=== PATIENT | female | born 1945 | race Caucasian/White ===

== ENCOUNTER → 2017-08-02 10:03 | Outpatient (CLI) | payer MEDICARE, SELFPAY ==
[2017-08-02 10:57] LABS: AST(SGOT) 12 U/L (15-37); Alanine Aminotransfer ALT/SGPT 21 U/L (13-56); Albumin, Serum 3.7 g/dL (3.2-5.0); Alkaline Phosphatase 111 U/L (45-117); Bilirubin, Direct 0.06 mg/dL (0.00-0.30); Cholesterol 182 mg/dL (200); Globulin 3.5 g/dL (2.2-4.2); High Density Lipoprotein 53 mg/dL; Protein, Total 7.2 g/dL (6.4-8.2); Triglycerides 94 mg/dL; Very Low Density Lipoprotein 19 mg/dL (5-40)
== END ==
PROVIDERS: Family Provider Family Medicine; PCP Family Medicine; Visit Provider Nurse Practitioner Family
DX: E78.2 Mixed hyperlipidemia (principal)
CPT/HCPCS: 36415; 80061; 80076

== ENCOUNTER → 2023-11-19 | Outpatient (CLI) | payer MEDICARE, SELFPAY ==
--- NOTE | 2023-11-19 13:37 | ECHOD_ITS ---
Version 2 Reason For Study: VALVULAR DISEASE Procedure This was a 2D Doppler, Color Flow transthoracic echocardiogram. Exam performed in department. Left Ventricle Normal LV size. Left ventricular systolic function is normal. The left ventricular ejection fraction is 60 %. No regional wall motion abnormalities noted. Right Ventricle Normal RV size. Normal systolic function. Atria Normal left atrium. Normal right atrium. Mitral Valve Normal mitral valve. Tricuspid Valve Normal tricuspid valve. Mild tricuspid valve insufficiency. Aortic Valve Trisinus/trileaflet aortic valve. Pulmonic Valve Normal pulmonic valve. Great Vessels Normal aortic root. The pulmonary artery is normal size. Normal inferior vena cava. Pericardium/Pleural No pericardial effusion. MMode/2D Measurements & Calculations LVIDd: 4.8 cm IVSd: 0.85 cm LVOT diam: 2.0 cm LVIDs: 2.9 cm LVPWd: 0.77 cm LVOT area: 3.1 cm2 RVDd: 4.0 cm FS: 39.9 % Ao root diam: 3.4 cm LAV(MOD-bp): 49.2 ml LVAd ap4: 20.9 cm2 LAV(MOD-bp) Indexed: 29.9 ml/m2 LVLd ap4: 6.8 cm LAV(MOD-sp2): 51.6 ml EDV(MOD-sp4): 52.3 ml LAV(MOD-sp4): 42.7 ml EDV(sp4-el): 55.0 ml LVAs ap4: 10.2 cm2 LVLs ap4: 5.3 cm ESV(MOD-sp4): 16.0 ml ESV(sp4-el): 16.7 ml EF(MOD-sp4): 69.4 % EF(sp4-el): 69.6 % LVAd ap2: 19.1 cm2 SV(MOD-sp4): 36.3 ml SV(MOD-sp2): 29.2 ml LVLd ap2: 6.8 cm EDV(MOD-sp2): 43.8 ml EDV(sp2-el): 45.8 ml LVAs ap2: 9.8 cm2 LVLs ap2: 5.4 cm ESV(MOD-sp2): 14.6 ml ESV(sp2-el): 15.0 ml EF(MOD-sp2): 66.7 % SV(sp4-el): 38.3 ml LA dimension(2D): 3.8 cm LA A4 area: 17.2 cm2 RA A4 area: 14.1 cm2 TAPSE: 1.9 cm Time Measurements MV dec time: 0.35 sec Doppler Measurements & Calculations MV E max donny: 38.5 cm/sec Lat Peak E' Donny: 9.1 cm/sec Med Peak E' Donny: 7.1 cm/sec MV A max donny: 61.7 cm/sec E/E' lat: 4.2 E/E' med: 5.4 MV E/A: 0.62 Ao V2 max: 132.6 cm/sec LV V1 max: 102.8 cm/sec MV dec slope: 111.4 cm/sec2 Ao max P.0 mmHg LV V1 max P.2 mmHg Ao V2 mean: 90.6 cm/sec LV V1 mean P.2 mmHg Ao mean P.8 mmHg LV V1 mean: 69.1 cm/sec Ao V2 VTI: 29.2 cm LV V1 VTI: 23.9 cm AV (velocity ratio): 0.82 MO(I,D): 2.5 cm2 MO(V,D): 2.4 cm2 SV(LVOT): 74.5 ml PA V2 max: 77.1 cm/sec TR max donny: 229.0 cm/sec PA max PG (full): 1.3 mmHg TR max P.0 mmHg ECHO/Echo Complete Interpretation Summary Normal LV size. Left ventricular systolic function is normal. The left ventricular ejection fraction is 60 %. Mild tricuspid valve insufficiency. Structurally normal valves. Ordering Physician: Germaine Jacobs Referring Physician: Germaine Jacobs Performed By: Jackie Hodges RDCS and Student
== END | disposition home or self-care (01) ==
LOC: CVS 13:36
PROVIDERS: Referring Provider Nurse Practitioner Gerontology; Visit Provider Nurse Practitioner Gerontology
DX: I38 Endocarditis, valve unspecified (principal)
CPT/HCPCS: 93306